=== PATIENT | male | born 1950 | race Caucasian/White ===

== ENCOUNTER 2021-05-06 13:39 | Inpatient (IN) | payer SELFPAY ==
[~2021-05-06] VITALS: Ht 167.6 cm; Wt 68.9 kg
[2021-05-06] MEDS ORDERED: LORAZEPAM 2MG/ML CPJ IM STA (13:57)
[2021-05-06] MEDS ORDERED: LORAZEPAM 2MG/ML CPJ IV ONE (14:00)
[2021-05-06] MEDS ORDERED: SODIUM CHLORIDE 0.9% 1,000 ML IV ONE (14:00)
[2021-05-06] MEDS ORDERED: LEVETIRACETAM 500MG PREMIX 100 ML IV ONE (14:15)
[2021-05-06 15:14] LABS: CHLORIDE 107 mEq/L (98-107)
[2021-05-06 15:23] LABS: ETHANOL BLOOD < 10 mg/dL
[2021-05-06 15:25] LABS: VALPROIC ACID <3.0 ug/mL ug/mL (50-100)
[2021-05-06 15:27] LABS: CARBAMAZEPINE 1.5 ug/mL (4-12)
[2021-05-06 15:36] LABS: PHENOBARBITAL < 2.1 ug/mL (15.0-40.0)
[2021-05-06 16:36] LABS: HEMATOCRIT. 38.6 % (42.0-52.0); MEAN CORPUSCULAR HEMOGLOBIN 34.1 pg (28.0-32.0); MEAN CORPUSCULAR VOLUME 101.5 fL (80.0-94.0); MEAN PLATELET VOLUME 7.8 fl (7.4-10.4); PLATELET 207 x1000/uL (130-400); RED BLOOD CELL COUNT 3.81 mill/uL (4.7-6.1); RED CELL DISTRIBUTION WIDTH 12.7 % (11.6-14.6)
[2021-05-06 17:40] LABS: CLARITY URINE CLEAR (CLEAR); COLOR URINE YELLOW (YELLOW); KETONES URINE TRACE (NEGATIVE); LEUKOCYTE ESTERASE URINE NEGATIVE (NEGATIVE); NITRITE URINE NEGATIVE (NEGATIVE); OCCULT BLOOD URINE NEGATIVE (NEGATIVE); PH URINE 6.5 (4.5-8.0); PROTEIN URINE 1+ (NEGATIVE); SPECIFIC GRAVITY URINE 1.026 (1.005-1.030)
[2021-05-06 17:49] LABS: *AMPHETAMINES SCREEN URINE NEGATIVE (NEGATIVE); *BARBITURATES SCREEN URINE NEGATIVE (NEGATIVE); *BENZODIAZEPINES SCREEN URINE NEGATIVE (NEGATIVE); *COCAINE SCREEN URINE NEGATIVE (NEGATIVE)
[2021-05-06 17:50] LABS: CANNABINOID URINE SCREEN NEGATIVE (NEGATIVE); METHADONE URINE SCREEN NEGATIVE (NEGATIVE); OPIATES URINE SCREEN NEGATIVE (NEGATIVE); PHENCYCLIDINE URINE SCREEN NEGATIVE (NEGATIVE)
[2021-05-06 18:41] LABS: PLATELET ESTIMATE NORMAL
[2021-05-07 04:45] VITALS: BP 156/58
[2021-05-07] MEDS ORDERED: ACETAMINOPHEN 325MG TABLET PO PRN (04:45)
[2021-05-07 08:08] VITALS: BP 141/50
[2021-05-07] MEDS ORDERED: LEVETIRACETAM 500MG TABLET PO SCH (09:00)
[2021-05-07 12:29] VITALS: BP 150/91
[2021-05-07 12:30] VITALS: BP 150/91
[2021-05-07] MEDS ORDERED: KEPP500 MT (12:49)
[2021-05-07] MEDS ORDERED: LORAZEPAM 2MG/ML CPJ IV PRN (13:00)
[2021-05-07 16:44] VITALS: BP 143/62
[2021-05-07 17:26] VITALS: BP 143/62
== END 2021-05-07 19:00 | disposition home or self-care (01) | DRG 53 ==
LOC: ER 13:39 → EDBD 13:39 → EDBEDREQTM 20:43 → EDBEDREQ 20:43 → ENRESERV 05-07 02:23 → EDBD 05-07 04:23 → 6WST 05-07 04:23
PROVIDERS: ADMIT Internal Medicine; ATTEND Internal Medicine
DX: G40.909 Epilepsy, unspecified, not intractable, without status epilepticus (principal); D72.829 Elevated white blood cell count, unspecified; I10 Essential (primary) hypertension; Z79.899 Other long term (current) drug therapy
CPT/HCPCS: 36415; 71045; 80053; 80156; 80165; 80184; 80185; 80305; 80307; 80320; 80329; 81003; 82140; 83735; 84484; 85025; 93005; 99285; J1953; J2060; J7030; G0480